=== PATIENT | female | born 1950 | race Caucasian/White ===

== ENCOUNTER 2019-12-25 19:13 | Emergency (ER) | payer MEDICARE, BC ==
[~2019-12-25] VITALS: Ht 160 cm; Wt 61.0 kg
[~2019-12-25 19:13] MED LIST: AMLO1CAP54 PO; BUPR150T6 PO; ENOX30DI4 SQ; ENOX60DI7 SQ; ESCI20TA29 PO; FAMO-1 PO; HYDR-569 PO; METH5TAB PO; PRAV40TA65 PO
[2019-12-25 19:16] VITALS: BP 172/72
--- NOTE | 2019-12-25 19:22 | NUR ---
SPOKE WITH MD THORNTON RE: PTS COMPLAINT AND HER BEING ON THINNERS. HE DOESN'T WANT A HEAD CT AT THIS TIME PT DID NOT HIT HEAD OR HAVE LOC. HE IS ORDERING SOME PAIN MEDICATION FOR THE PATIENT AT THIS TIME. PRIMARY RN DEAN MAXWELL.
[2019-12-25] MEDS ORDERED: acetaminophen w/codeine (30MG) #3 tablet PO ONE (19:25)
[2019-12-25] MEDS ORDERED: ACET-3068 PO (19:59)
[2019-12-25] MEDS ORDERED: BUPIVAcaine/PF 7.5 mg/ml (0.75%) 30ml vial IJ ONE (20:00)
[2019-12-25] MEDS ORDERED: BUPIVAcaine/PF 7.5mg/ml (0.75%) 10ml vial IJ ONE (20:05)
== END 2019-12-25 20:40 | disposition home or self-care (01) ==
LOC: ER 19:14
DX: S42.201A Unspecified fracture of upper end of right humerus, initial encounter for closed fracture (principal); M25.531 Pain in right wrist; I10 Essential (primary) hypertension; G89.29 Other chronic pain; Z98.890 Other specified postprocedural states; Z79.899 Other long term (current) drug therapy; Z79.01 Long term (current) use of anticoagulants; Z86.711 Personal history of pulmonary embolism; W01.0XXA Fall on same level from slipping, tripping and stumbling without subsequent striking against object, initial encounter; Y93.89 Activity, other specified; Y92.009 Unspecified place in unspecified non-institutional (private) residence as the place of occurrence of the external cause; Y99.9 Unspecified external cause status
CPT/HCPCS: 73030; 73110; 99284

== ENCOUNTER 2024-01-10 12:56 | Emergency (ER) | payer MEDICARE, BC ==
[~2024-01-10] VITALS: Ht 160 cm; Wt 5.7 kg
[~2024-01-10 12:56] MED LIST changes: +BUPR-317 PO; -BUPR150T6 PO
[2024-01-10 13:01] VITALS: BP 155/54; PULSE 97; O2SAT 98
[2024-01-10 14:14] VITALS: RESP 16; TEMP 97.8
== END 2024-01-10 14:17 | disposition home or self-care (01) ==
LOC: ER 12:57
DX: M25.461 Effusion, right knee (principal); M25.561 Pain in right knee; I10 Essential (primary) hypertension; Z79.899 Other long term (current) drug therapy
CPT/HCPCS: 73564; 99283